=== PATIENT | male | born 1975 | race Caucasian/White ===

== ENCOUNTER 2020-11-12 08:28 | Outpatient (RCR) | payer BC, SELFPAY ==
--- NOTE | 2020-11-12 07:47 | PTOPEVAL ---
Thank you for referring Pawel Lucio to [facility].? The patient is scheduled to be seen for therapy? __2__x/week for 4 visits. Please review, sign, date and return this plan of care FATOU. I agree with and certify that the following plan of care is medically necessary. Referring Physician Date Admitting Provider: Attending Provider: Bolivar Cunningham Referring Provider: *PT Outpatient Evaluation Start: 11/12/20 07:11 Freq: Status: Active Protocol: Document 11/12/20 07:12 DUSTIN (Rec: 11/12/20 07:47 DUSTIN [id number]) Therapy Assessment Status Assessment Status Assessment Status Evaluation Evaluation Information Problem Diagnosis cervicalgia Onset 07/03/20 Subjective Information Pt. reports waking up in the Query Text:As Reported By Patient/ morning with pain in the neck. Family He describes pain in the left side of the neck and tingling that will go down the arm into the index finger and thumb. He reports pain in the neck is constant, but the tingling comes and goes. He states that pain is worst at night. He states that he wakes at night frequently due to pain. 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 He has been to the chiropractor, with some relief. He reports that he has had MRI which revealed a herniated disc. He reports that his goal is to decrease his pain. Prior Level of Function Activity Level (Last 3 Months) Occupation autobody repair Hand Dominance Ambidextrous Activity of Daily Living Ability Independent Indoor/Home Mobility Independent Community Mobility Independent Stairs Ability Independent Functional Cognition (Planning, Shopping Independent , Taking Medications) Cooking Yes Cleaning Yes Laundry Yes Shopping Yes Driving Yes Pain Assessment Pain Scale Pain Scale Used Numeric (1 - 10) Self Report Pain Assessment Left Neck Reported Pain Level 2 Pain Description Aching,Tingling Pain Radiation Left Arm Pain Frequency Continuous Pain Aggravating Factors Sitting
--- NOTE | 2020-11-26 08:20 | PTOPEVAL ---
Thank you for referring Pawel Lucio to [facility].? The patient is scheduled to be seen for therapy? __1__x/week for _3__ weeks. Please review, sign, date and return this plan of care FATOU. I agree with and certify that the following plan of care is medically necessary. Referring Physician Date Admitting Provider: Attending Provider: Bolivar Cunningham Referring Provider: *PT Outpatient Evaluation Start: 11/12/20 07:11 Freq: Status: Active Protocol: Document 11/26/20 07:03 DUSTIN (Rec: 11/26/20 08:19 DUSTIN [email or web address]) Therapy Assessment Status Assessment Status Assessment Status Re-evaluation Evaluation Information Problem Diagnosis cervicalgia Additional Evaluation Detail NDI=16% limitation Subjective Information Pt. reports that he still has Query Text:As Reported By Patient/ consistent symptoms of Family numbness and tingling into the left arm. He reports signficant decrease in pain initially, but has been unable to do traction and pain has recently increased. He states that he would like to continue with treatment in order to continue to reduce pain and numbness into the left arm Pain Assessment Timing of Pain Assessment Timing of Pain Assessment Pre-Treatment Pain Scale Pain Scale Used Numeric (1 - 10) Self Report Pain Assessment Left Neck Reported Pain Level 4 Lowest Pain Intensity 1 Pain Score Pain Score 4: Self Report Interventions Used Interventions Used By Clinicians Electrical Stimulation, Exercise,Heat,Traction Cervical and Lumbar ROM Cervical ROM Cervical Flexion (0-60) 54 Query Text:Active in Degrees Cervical Extension (0-70) 44 Query Text:Active in Degrees Cervical Rotation Right (0-90) 80 Query Text:Active in Degrees Cervical Rotation Left (0-90) 74 Query Text:Active in Degrees Upper Extremity Muscle Strength Testing General Upper Extremity Strength Gross Upper Extremity Strength Comments -bilateral shoulder flexion 4+ /5 -bilateral shoulder ER 4+/5 Palpation Assessment Palpation Palpation continue to note TTP in the area of the left upper trap and cervical paraspinals General Exercise General Exercises Exercise Description -bilateral shoulder scaption 3 Query Text:Record Sets, Reps, # x 20 Resistance, an
== END 2020-12-17 10:48 | disposition home or self-care (01) ==
LOC: CHSPT 08:28
DX: M54.12 Radiculopathy, cervical region (principal)
CPT/HCPCS: 97012; 97014; 97016; 97110; 97140; 97161; G0283

== ENCOUNTER 2023-03-24 11:30 | Emergency (ER) | payer BC, SELFPAY ==
--- NOTE | ~2023-03-24 | XR_ITS ---
XR knee LT 3V 03/24/2023 12:52 INDICATION: Left knee pain and swelling PROCEDURE: 3 views left knee COMPARISON: No prior studies for comparison. FINDINGS: Fracture, dislocation or subluxation is not identified. No significant joint effusion. The soft tissues appear within normal limits. No foreign bodies are identified. IMPRESSION: 1: NO ACUTE BONE OR JOINT ABNORMALITY IDENTIFIED. Reviewed, dictated and finalized at location L.
--- NOTE | ~2023-03-24 | US_ITS ---
EXAMINATION:US venous doppler LE LT INDICATION:Leg pain TECHNIQUE: Multiple grayscale, color flow and Doppler images of the left lower extremity deep venous systems were obtained and reviewed. COMPARISON:No prior studies for comparison. FINDINGS: The common femoral, superficial femoral and popliteal veins demonstrate normal respiratory variation, augmentation and compressibility. Color flow is also seen within the posterior tibial, pe roneal, greater saphenous and profunda veins. IMPRESSION: 1: No lower extremity deep venous thrombosis. Reviewed, dictated and finalized at location L.
[2023-03-24 11:58] VITALS: BP 149/108; PULSE 90; RESP 18; TEMP 36.7; O2SAT 99
--- NOTE | 2023-03-24 12:04 | PC.NURSE ---
Patient denies injury and states pain began around 1 month ago. Patient has no swelling to extremity.
--- NOTE | 2023-03-24 12:59 | ED.LOWEXIN ---
HPI - Extremity Injury (Lower) General Chief Complaint: Extremity Injury, Lower Stated Complaint: LLE pain Time Seen by Provider: 03/24/23 12:22 History of Present Illness HPI Narrative: Patient is a 47-year-old male who presents ER with pain to the left calf and knee. Reports pain to the posterior calf had been occurring over the last week and now it is gone up into his knee. Pain in the knee is worse in the posterior aspect. He is able to bear weight. He has no fevers or chills or sweats. He noticed mild effusion to the left knee today compared to the right. No known trauma. He has taken some ibuprofen with only mild improvement. Review of Systems Review of Systems: All systems reviewed & are unremarkable except as noted in HPI and below Constitutional: Constitutional: Denies chills and Denies fever(s) Musculoskeletal: Musculoskeletal: Reports arthralgias, Reports joint swelling and Reports muscle cramps Integumentary/Breasts: Skin/Breast: Denies rash and Denies skin ulcer Neurologic: Denies focal weakness and Denies numbness PMFSH Past Medical History Medical History (Updated 03/24/23 @ 14:12 by Chin Mccloud MD) Healthy adult male Surgical History Surgical History (Updated 03/24/23 @ 14:12 by Chin Mccloud MD) No pertinent past surgical history Exam Narrative: GENERAL: Well-appearing, well-nourished, and in no acute distress. HEAD: Normocephalic, atraumatic. ENT: Mucous membranes moist. EXTREMITIES: Left knee with mild effusion without joint line tenderness or tenderness over the patella. Patient has pain with full extension at the left knee over the posterior aspect of the knee and proximal calf. Negative Homans' sign. No significant edema. The left knee joint is not red or hot. SKIN: Warm, dry, no rash. NEURO: Alert and oriented x3. PSYCH: Normal mood and affect. Course Course Emergency Course: Patient resting comfortably. Informed of results. Discussed conservative therapy for his knee discomfort. He is verbalized understanding. Recommend follow-up with PCP. Exam is not consistent with septic joint. Vital Signs Vital signs: Vital Signs Temperature 98.0 F 03/24/23 11:58 Pulse Rate 90 03/24/23 11:58 Respiratory Rate 18 03/24/23 11:58 Blood Pressure 149/108 H 03/24/23 11:58 Pulse Oximetry 99 03/24/23 11:58 Oxygen Delivery Room Air 03/24/23 11:58 Temperature 98.0 F 03/24/23 11:58 Pulse Rate 90 03/24/23 11:58 Respiratory Rate 18 03/24/23 11:58 Blood Pressure 149/108 H 03/24/23 11:58 Pulse Oximetry 99 03/24/23 11:58 Oxygen Delivery Room Air 03/24/23 11:58 MDM - Extremity Injury (Lower) Imaging Data Radiologist's impression: ITS Impressions Venous Doppler Study 03/24/23 12:42 IMPRESSION: 1: No lower extremity deep venous thrombosis. Knee X-Ray 03/24/23 12:56 IMPRESSION: 1: NO ACUTE BONE OR JOINT ABNORMALITY IDENTIFIED. Discharge Plan Discharge Clinical Impression: Effusion of knee, Calf pain Patient Disposition: Home, Self-Care Condition: Stable Instructions: Leg Cramps (ED), Swollen Knee Joint (ED) Additional Instructions: Follow-up with your primary care doctor for further treatment evaluation. Take anti-inflammatory medications to help with your discomfort. You may massage her calf to help improve the tightness. Additionally a compressive knee wrap may be beneficial for the discomfort in your knee. Prescriptions: New naproxen 375 mg tablet 375 mg PO BID Qty: 14 0RF Follow-up/Referrals: PHYSICIAN NOT ON STAFF,NONSTAFF [Primary Care Provider] - 1 Week
--- NOTE | 2023-03-24 16:19 | PC.NURSE ---
prescription called in to [facility] pharmacy in [place].
== END 2023-03-24 14:28 | disposition home or self-care (01) ==
PROVIDERS: Emergency Provider Emergency Medicine
DX: M79.662 Pain in left lower leg (principal); M25.462 Effusion, left knee
CPT/HCPCS: 73562; 93971; 99284

== ENCOUNTER 2024-02-08 10:12 | Outpatient (CLI) | payer SELFPAY | END 2024-02-08 10:13 | disposition home or self-care (01) | PROVIDERS: PCP Physician Assistant; Visit Provider Physician Assistant | DX: Z71.89 Other specified counseling (principal); Z71.3 Dietary counseling and surveillance | CPT/HCPCS: 99199 ==